=== PATIENT | male | born 1940 ===

== ENCOUNTER → 2022-01-21 | Outpatient (CLI) | payer MEDICARE | LOC: KOH-I 01-15 11:00 | DX: M75.102 Unspecified rotator cuff tear or rupture of left shoulder, not specified as traumatic (principal); S43.002A Unspecified subluxation of left shoulder joint, initial encounter | CPT/HCPCS: 73200 ==

== ENCOUNTER → 2022-04-14 | Outpatient (CLI) | payer MEDICARE | LOC: KOH-I 04-06 10:00 | DX: S32.029A Unspecified fracture of second lumbar vertebra, initial encounter for closed fracture (principal); X58.XXXA Exposure to other specified factors, initial encounter; M43.16 Spondylolisthesis, lumbar region | CPT/HCPCS: 72131 ==